=== PATIENT | female | born 1995 | race Asian ===

== ENCOUNTER 2018-11-19 12:24 | Emergency (ER) | payer SELFPAY ==
--- NOTE | 2018-11-19 14:06 | EDM.PDOC ---
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 MISCARRIAGE Time Seen by Provider: 11/19/18 13:15 Source of Information: Reports: Patient History Limitations: Reports: No Limitations - History of Present Illness INITIAL COMMENTS - FREE TEXT/NARRATIVE: 23-year-old female presents for evaluation and treatment of bleeding during . Patient reports she is 12 weeks , however, her last menstrual period was September 19, 2018. She's not yet seen OB for this , reports she's had multiple at home tests which have been positive. She reports that she experienced some "light bleeding" today. States she is no abdominal pain. This started today 2 hours prior to arrival in the ER and has now stopped. She denies any nausea, vomiting, dysuria, hematuria, abdominal cramping and back pain other than normal. Patient is a . Does not know her blood type. Has not yet seen OB for this but plans to see one of the providers at [facility]. - Related Data Allergies Allergy/AdvReac Type Severity Reaction Status Date / Time No Known Allergies Allergy Verified 11/19/18 12:30 Home Meds: Home Meds Cephalexin [Keflex] 500 mg PO BID #10 capsule 11/19/18 [Rx] Vit #108/Iron/FA [ One Tablet] 1 tab PO DAILY 11/19/18 [History ] Past Medical History - Past Health History Medical/Surgical History: Denies Medical/Surgical History HEENT History: Reports: Impaired Vision TRACK ANNOUNCER History: Reports: , Spontaneous Musculoskeletal History: Reports: Back Pain, Chronic Hematologic History: Reports: Anemia Social & Family History - Family History Family Medical History: Noncontributory Endocrine/Metabolic: Reports: Diabetes, type II - Tobacco Use Smoking Status *Q: Never Smoker - Caffeine Use Caffeine Use: Reports: Soda - Recreational Drug Use Recreational Drug Use: No ED ROS GENERAL - Review of Systems Review Of Systems: See Below GI/Abdominal: Denies: Abdominal Pain, Nausea, Vomiting : Reports: Other (reports vaginal bleeding, has since stopped). Denies: Dysuria Musculoskeletal: Denies: Back Pain (no back pain out of the normal) ED EXAM - Physical Exam Exam: See Below Exam Limited By: No Limitations General Appearance: Alert, WD/WN, No Apparent Distress Respiratory/Chest: No Respiratory Distress, Lungs Clear, Normal Breath Sounds Cardiovascular: Normal Peripheral Pulses, Regular Rate, Rhythm, No Murmur GI/Abdominal Exam: Normal Bowel Sounds, Soft, Non-Tender Heart Tones: Not Casey (patinet is 8 weeks along based on LMP) Neurological: Alert, Oriented, Normal Cognition Psychiatric: Normal Affect, Normal Mood Skin Exam: Warm, Dry, Normal Color Course - Vital Signs Last Recorded V/S: Last Vital Signs Temp 97.8 F 11/19/18 12:51 Pulse 68 11/19/18 12:51 Resp 16 11/19/18 12:51 BP 111/63 11/19/18 12:51 Pulse Ox 100 11/19/18 12:51 - Orders/Labs/Meds Orders: Active Orders 24 hr Category Date Time Status CULTURE URINE [RM] Stat Lab 11/19/18 12:40 Received Labs: Laboratory Tests 11/19/18 11/19/18 11/19/18 Range/Units 12:48 13:51 13:51 WBC 10.64 H (3.98-10.04) K/mm3 RBC 4.76 (3.98-5.22) M/mm3 Hgb 14.5 (11.2-15.7) gm/L Hct 41.3 (34.1-44.9) % MCV 86.8 (79.4-94.8) fl MCH 30.5 (25.6-32.2) pg MCHC 35.1 (32.2-35.5) g/dl RDW Std Deviation 37.3 (36.4-46.3) fL Plt Count 254 (182-369) K/mm3 MPV 10.7 (9.4-12.3) fl Neut % (Auto) 73.1 H (34.0-71.1) % Lymph % (Auto) 19.5 (19.3-51.7) % Sunflower % (Auto) 5.6 (4.7-12.5) % Eos % (Auto) 1.4 (0.7-5.8) Baso % (Auto) 0.2 (0.1-1.2) % Neut # (Auto) 7.78 H (1.56-6.13) K/mm3 Lymph # (Auto) 2.07 (1.18-3.74) K/mm3 Sunflower # (Auto) 0.60 H (0.24-0.36) K/mm3 Eos # (Auto) 0.15 (0.04-0.36) K/mm3 Baso # (Auto) 0.02 (0.01-0.08) K/mm3 HCG, Quant 53336.0 mIU/mL Urine Color Yellow (Yellow) Urine Appearance Slt cloudy H (Clear) Urine pH 6.0 (5.0-8.0) Ur Specific [place] 1.025 (1.005-1.030) Urine Protein Negative (Negative) Urine Glucose (UA) Negative (Negative) Urine Ketones 2+ H (Negative) Urine Occult Blood Negative (Negative) Urine Nitrite Positive H (Negative) Urine Bilirubin Negative (Negative) Urine Urobilinogen 1.0 (0.2-1.0) Ur Leukocyte Esterase 1+ H (Negative) Urine RBC Not seen (0-5) /hpf Urine WBC 5-10 H (0-5) /hpf Ur Epithelial Cells 0-5 (0-5) /hpf Urine Bacteria Many H (FEW) /hpf Urine Mucus Few (FEW) /hpf Blood Type 11/19/18 Range/Units 13:51 WBC (3.98-10.04) K/mm3 RBC (3.98-5.22) M/mm3 Hgb (11.2-15.7) gm/L Hct (34.1-44.9) % MCV (79.4-94.8) fl MCH (25.6-32.2) pg MCHC (32.2-35.5) g/dl RDW Std Deviation (36.4-46.3) fL Plt Count (182-369) K/mm3 MPV (9.4-12.3) fl Neut % (Auto) (34.0-71.1) % Lymph % (Auto) (19.3-51.7) % Sunflower % (Auto) (4.7-12.5) % Eos % (Auto) (0.7-5.8) Baso % (Auto) (0.1-1.2) % Neut # (Auto) (1.56-6.13) K/mm3 Lymph # (Auto) (1.18-3.74) K/mm3 Sunflower # (Auto) (0.24-0.36) K/mm3 Eos # (Auto) (0.04-0.36) K/mm3 Baso # (Auto) (0.01-0.08) K/mm3 HCG, Quant mIU/mL Urine Color (Yellow) Urine Appearance (Clear) Urine pH (5.0-8.0) Ur Specific [place] (1.005-1.030) Urine Protein (Negative) Urine Glucose (UA) (Negative) Urine Ketones (Negative) Urine Occult Blood (Negative) Urine Nitrite (Negative) Urine Bilirubin (Negative) Urine Urobilinogen (0.2-1.0) Ur Leukocyte Esterase (Negative) Urine RBC (0-5) /hpf Urine WBC (0-5) /hpf Ur Epithelial Cells (0-5) /hpf Urine Bacteria (FEW) /hpf Urine Mucus (FEW) /hpf Blood Type O POSITIVE - Re-Assessments/Exams Free Text/Narrative Re-Assessment/Exam: 11/19/18 15:14 I reviewed the labs that the patient. She is not in any acute distress and is not bleeding do not see any reason for an emergent ultrasound today. Will start her on Keflex for the urinary tract infection. Her blood type is O+ . We'll have her follow-up with OB. discharge instructions as documented. Departure - Departure Time of Disposition: 15:17 Disposition: Home, Self-Care 01 Condition: Good Clinical Impression: UTI (urinary tract infection), - Discharge Information *PRESCRIPTION DRUG MONITORING PROGRAM REVIEWED*: No *COPY OF PRESCRIPTION DRUG MONITORING REPORT IN PATIENT CHAVEZ: No Prescriptions: Cephalexin [Keflex] 500 mg PO BID #10 capsule Instructions: Urinary Tract Infection, Adult Referrals: PCP,None [Primary Care Provider] - Zora Logan MD [Physician] - Forms: ED Department Discharge Additional Instructions: Take the Keflex as prescribed. 1 cap Twice a day for 5 days. Make sure you are drinking plenty of fluids. Drink half of your body weight in ounces of fluid everyday. Follow-up with OB within 2 weeks for recheck of your symptoms. Recommend Dr. Logan at [facility]. Call [phone] schedule with her. Please return to the ER if your symptoms change or worsen. - My Orders Last 24 Hours: My Active Orders 11/19/18 12:40 CULTURE URINE [RM] Stat - Assessment/Plan Last 24 Hours: My Active Orders 11/19/18 12:40 CULTURE URINE [RM] Stat
== END 2018-11-19 15:40 | disposition home or self-care (01) ==
LOC: JD.ED 12:24
DX: O23.41 Unspecified infection of urinary tract in pregnancy, first trimester (principal); O99.011 Anemia complicating pregnancy, first trimester; Z3A.08 8 weeks gestation of pregnancy; Z79.2 Long term (current) use of antibiotics
CPT/HCPCS: 36415; 81001; 84702; 85025; 86900; 86901; 87086; 87088; 87186; 99284

== ENCOUNTER 2024-01-30 15:09 | Emergency (ER) | payer MEDICAID, OTHER ==
[2024-01-30 18:29] LABS: C. TRACHOMATIS BY PCR NOT DETECTED; N. GONORRHOEAE BY PCR NOT DETECTED
== END 2024-01-30 18:51 | disposition home or self-care (01) ==
LOC: JD.ED 15:09
DX: O03.9 Complete or unspecified spontaneous abortion without complication (principal); N76.0 Acute vaginitis; Z79.899 Other long term (current) drug therapy; Z3A.10 10 weeks gestation of pregnancy
CPT/HCPCS: 0352U; 76817; 87491; 87591; 99284; 99283

== ENCOUNTER 2025-06-06 02:23 | Inpatient (IN) | payer SELFPAY ==
[2025-06-06] MEDS ORDERED: Ondansetron 4 MG/2 ML SDV IVPUSH PRN (05:30)
[2025-06-06] MEDS ORDERED: Sodium Chloride 0.9% 10 ML Syringe FLUSH PRN (05:30)
[2025-06-06 06:00] LABS: BASOPHILS ABSOLUTE AUTO 0.1 K/mm3 (0.0-0.2); BASOPHILS PERCENT AUTO 0.5 % (0.0-1.0); EOSINOPHILS ABSOLUTE AUTO 0.1 K/mm3 (0.0-0.4); EOSINOPHILS PERCENT AUTO 1.1 % (0.0-6.0); IMMATURE GRAN ABSOLUTE AUTO 0.11 K/mm3 (0.00-0.05); IMMATURE GRAN PERCENT AUTO 0.8 % (0.0-0.4); LYMPHOCYTES ABSOLUTE AUTO 2.3 K/mm3 (1.0-4.8); LYMPHOCYTES PERCENT AUTO 17.8 % (24.0-44.0); MEAN PLATELET VOLUME 11.5 fl (9.4-12.3); MONOCYTES ABSOLUTE AUTO 0.7 K/mm3 (0.0-0.8); MONOCYTES PERCENT AUTO 5.6 % (0.0-8.0); NEUTROPHILS ABSOLUTE AUTO 9.7 K/mm3 (1.8-7.7); NEUTROPHILS PERCENT AUTO 74.2 % (41.0-71.0); NRBC ABSOLUTE 0.00 (0.00-0.02); NRBC PERCENT 0.0 % (0.0-0.2); PLATELET COUNT,PLT 192 K/mm3 (150-400); RED BLOOD CELL COUNT 4.30 M/mm3 (4.10-5.30); WHITE BLOOD CELL COUNT,WBC 13.12 K/mm3 (3.9-11.3)
[2025-06-06] MEDS: Nalbuphine 10 MG/1 ML Vial IVPUSH PRN (06:40)
[2025-06-06] MEDS: Lactated Ringers 1,000 ML IV SCH (06:40)
[2025-06-06] MEDS ORDERED: ePHEDrine 50 MG/ML SDV IVPUSH PRN (11:36)
[2025-06-06] MEDS ORDERED: fentaNYL 100 MCG/2 ML SDV EPIDUR PRN (11:36)
[2025-06-06] MEDS ORDERED: diphenhydrAMINE 50 MG/ML SDV IVPUSH PRN (11:36)
[2025-06-06] MEDS: Bupivacaine/fentaNYL/NS 100 ML Bag EPIDUR PRN (11:50)
[2025-06-06] MEDS: Oxytocin/0.9 % Sodium Chloride 30 UNIT/500 ML BAG IV SCH (16:08)
[2025-06-06] MEDS ORDERED: Oxytocin/0.9 % Sodium Chloride 30 UNIT/500 ML BAG IV SCH (18:19)
[2025-06-06] MEDS ORDERED: Magnesium Hydroxide 400 MG/5 ML Susp 30 ML Cup PO PRN (18:19)
[2025-06-06] MEDS: Benzocaine/Menthol 20%-0.5% Spray 78 GM Cannister TOP PRN (18:42)
[2025-06-06] MEDS: Witch Hazel Medicated Pads 40/Jar TOP PRN (18:42)
[2025-06-07] MEDS: Prenatal Multivitamin with Calcium/Folic Acid/Iron Tab PO SCH (15:55)
== END 2025-06-07 17:49 | disposition home or self-care (01) | DRG 807 ==
LOC: JD.OBCHECK 02:23 → JD.OB 02:29 → OBSVTOIN 05:31 → JD.OB 05:31 → JD.OBCHECK 05:37 → JD.OB 16:41 → JD.MS 06-07 16:22 → JD.OB 06-07 16:22
PROVIDERS: ADMIT Obstetrics & Gynecology; ATTEND Obstetrics & Gynecology
PROC: 10E0XZZ Delivery of Products of Conception, External Approach (ICD-10-PCS; principal; 2025-06-05)
PROC: 4A1HXCZ Monitoring of Products of Conception, Cardiac Rate, External Approach (ICD-10-PCS; 2025-06-05)
PROC: 3E0R3BZ Introduction of Anesthetic Agent into Spinal Canal, Percutaneous Approach (ICD-10-PCS; 2025-06-05)
PROC: 00HU33Z Insertion of Infusion Device into Spinal Canal, Percutaneous Approach (ICD-10-PCS; 2025-06-05)
PROC: 10907ZC Drainage of Amniotic Fluid, Therapeutic from Products of Conception, Via Natural or Artificial Opening (ICD-10-PCS; 2025-06-05)
DX: O48.0 Post-term pregnancy (principal); Z37.0 Single live birth; Z3A.40 40 weeks gestation of pregnancy; O99.214 Obesity complicating childbirth
CPT/HCPCS: 01967; 36415; 51701; 59025; 59409; 85025; 86592; A9270-GY; C1758; J2003; J2300; J3490; J7120; J7999